=== PATIENT | female | born 1985 | race Caucasian/White ===

== ENCOUNTER 2019-02-09 12:40 | Emergency (ER) | payer MEDICAID ==
[~2019-02-09] VITALS: Ht 165.1 cm; Wt 91.0 kg
[2019-02-09] MEDS ORDERED: LEVETIRACETAM 500MG PREMIX 100 ML IV ONE (13:15)
[2019-02-09] MEDS ORDERED: SODIUM CHLORIDE 0.9% 1,000 ML IV ONE (13:15)
[2019-02-09] MEDS ORDERED: LORAZEPAM 1MG TABLET PO ONE (13:15)
[2019-02-09 13:33] LABS: BASOPHILS % 0.4 % (0.0-2.0); EOSINOPHILS % 4.5 % (0.0-5.0); HEMATOCRIT. 44.3 % (36.0-48.0); HEMOGLOBIN. 14.7 g/dL (12.0-16.0); MEAN CORPUSCULAR HEMOGLOBIN 28.4 pg (28.0-32.0); MEAN CORPUSCULAR VOLUME 85.8 fL (81.0-99.0); MEAN PLATELET VOLUME 7.7 fl (7.4-10.4); MONOCYTES % 5.5 % (2.0-8.0); NEUTROPHILS % 64.6 % (40.0-76.0); PLATELET 346 x1000/uL (130-400); RED BLOOD CELL COUNT 5.17 mill/uL (4.2-5.4); RED CELL DISTRIBUTION WIDTH 13.5 % (11.6-14.6)
[2019-02-09 13:38] LABS: CHLORIDE 106 mEq/L (98-107)
[2019-02-09] MEDS ORDERED: PHENYTOIN 100 MG/4 ML UDC NG ONE (14:00)
[2019-02-09] MEDS ORDERED: PHENYTOIN SODIUM EXTENDED 100MG CAPSULE PO ONE (14:00)
[2019-02-09 16:19] VITALS: BP 113/69
== END 2019-02-09 16:23 | disposition home or self-care (01) ==
LOC: ER 12:40
DX: G40.909 Epilepsy, unspecified, not intractable, without status epilepticus (principal); Z88.8 Allergy status to other drugs, medicaments and biological substances
CPT/HCPCS: 36415; 80053; 80185; 81025; 85025; 96365; 99283; J1953; J7030